=== PATIENT | male | born 1965 | race Caucasian/White ===

== ENCOUNTER 2019-01-22 19:34 | Emergency (ER) | payer OTHER ==
[~2019-01-22] VITALS: Ht 170.2 cm; Wt 78.9 kg
[2019-01-22 20:00] VITALS: Ht 170.2 cm; Wt 78.9 kg
[2019-01-22 21:45] VITALS: BP 134/78
== END 2019-01-22 21:45 | disposition home or self-care (01) ==
LOC: ED 19:34
DX: M25.812 Other specified joint disorders, left shoulder (principal); M72.2 Plantar fascial fibromatosis; F17.210 Nicotine dependence, cigarettes, uncomplicated
CPT/HCPCS: J1885